=== PATIENT | female | born 1980 | race Caucasian/White ===

== ENCOUNTER 2016-12-04 18:34 | Emergency (ER) | payer OTHER ==
[~2016-12-04] VITALS: Ht 160 cm; Wt 77.1 kg
[2016-12-04 19:49] VITALS: BP 124/73
== END 2016-12-04 19:51 | disposition home or self-care (01) ==
LOC: ER 18:34
DX: O26.891 Other specified pregnancy related conditions, first trimester (principal); H60.62 Unspecified chronic otitis externa, left ear; Z88.0 Allergy status to penicillin; Z3A.00 Weeks of gestation of pregnancy not specified

== ENCOUNTER 2016-12-18 19:02 | Emergency (ER) | payer OTHER ==
[~2016-12-18] VITALS: Ht 160 cm; Wt 79.4 kg
[2016-12-18] MEDS ORDERED: TYLENOL325 MG PO (19:58)
[2016-12-18 20:12] LABS: ABSOLUTE NEUTROPHILS 10.5 thou/uL (1.4-8.2); EOSINOPHILS 1.8 % (0.0-3.0); HEMOGLOBIN 13.7 gm/dL (12.0-15.0); LYMPHOCYTES 19.6 % (24.0-44.0); MCH 33.1 pg (26.0-34.0); MCHC 34.2 g/dL (28.0-37.0); MCV 96.7 fL (80.0-100.0); MONOCYTES 6.2 % (1.0-8.0); PLATELET COUNT 281 thou/uL (150-400); POLYS 71.4 % (36.0-66.0); RBC 4.13 mil/uL (4.20-5.00); RDW 13.3 % (10.5-14.5); WBC 14.7 thou/uL (4.0-11.0)
[2016-12-18 20:16] LABS: MANUAL DIFF NO
[2016-12-18 20:25] LABS: CALCIUM 8.8 mg/dL (8.5-10.1); CREATININE 0.7 mg/dL (0.6-1.0); POTASSIUM 3.6 mmol/L (3.5-5.1)
[2016-12-18 21:01] LABS: URINE BILIRUBIN NEGATIVE (Negative); URINE BLOOD TRACE (Negative); URINE COLOR YELLOW; URINE GLUCOSE-RANDOM* NEGATIVE (Negative); URINE KETONES NEGATIVE (Negative); URINE NITRITE NEGATIVE (Negative); URINE PROTEIN (DIPSTICK) NEGATIVE (Negative); URINE UROBILINOGEN 0.2 E.U./dl (0.2-1.0)
[2016-12-18] MEDS ORDERED: PHENERGAN 25 MG25 M1 PO (22:06)
[2016-12-18 22:17] VITALS: BP 104/65
[2016-12-21 14:09] LABS: CHLAMYDIA TRACHOMATIS-PCR Negative (Negative); NEISSERIA GONORRHEA-PCR Negative (Negative)
== END 2016-12-18 22:18 | disposition home or self-care (01) ==
LOC: ER 19:02
PROVIDERS: Emergency Medicine; Nurse Practitioner Family
DX: O26.891 Other specified pregnancy related conditions, first trimester (principal); R10.2 Pelvic and perineal pain; Z3A.01 Less than 8 weeks gestation of pregnancy; Z98.890 Other specified postprocedural states; Z88.0 Allergy status to penicillin

== ENCOUNTER 2017-09-17 17:13 | Emergency (ER) | payer OTHER ==
[~2017-09-17] VITALS: Ht 160 cm; Wt 90.7 kg
[~2017-09-17 17:13] MED LIST: PHENERGAN 25 MG25 M1 PO; TYLENOL325 MG PO
[2017-09-17 17:46] VITALS: BP 111/44
[2017-09-17] MEDS ORDERED: NORFLEX100 MG PO (19:07)
[2017-09-17] MEDS ORDERED: HYDROCODONE-AP1 EAC6 PO (19:07)
[2017-09-17] MEDS ORDERED: PREDNISONE 10 M10 MG PO (19:07)
== END 2017-09-18 05:36 | disposition home or self-care (01) ==
LOC: ER 17:13
DX: S39.012A Strain of muscle, fascia and tendon of lower back, initial encounter (principal); R42 Dizziness and giddiness; Z88.0 Allergy status to penicillin; X58.XXXA Exposure to other specified factors, initial encounter; Y93.89 Activity, other specified; Y92.89 Other specified places as the place of occurrence of the external cause; Y99.8 Other external cause status